=== PATIENT | female | born 1955 | race Caucasian/White ===

== ENCOUNTER → 2016-10-19 | Outpatient (CLI) | payer BC ==
[~2016-10-19] MED LIST: ACETAMINOPHEN PO; AMOXICILLIN875 MG PO; ASPIRIN PO; CLARITIN-D1 TAB 241 PO; COUMADIN PO; ECOTRIN325 MG PO; ELIQUIS5 MG PO; FLONASE 0.05% N16 GM; KEFLEX PO; KEFLEX500 MG PO; LOVENOX SUBQ; MEVACOR PO; NO MEDICATIONS; OFLOXACIN5 M1 AD; OXYCODON HCL-1 UDTA1 PO; PRILOSEC PO; VICODIN 5/500 T1 TAB PO; ZEGERID40 MG/PKT PO
--- NOTE | ~2016-10-19 | CT16 ---
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 Referring Physician: Laureen Willard A.P.R.N. Ordering Physician: Laureen Willadr A.P.R.N. Primary Care Physician: Laureen Willard A.P.R.N. MEDICAL IMAGING REPORT This report is preliminary unless electronic signature is present. EXAM Chest CTA, 10/19. INDICATION New onset right side chest pain. Patient had pulmonary embolism on recent prior CT and is currently on blood thinners. Pain rates 2/10 at this time. TECHNIQUE Axial images were obtained through the chest following IV contrast administration. 3-D reformats were obtained. This CT exam was performed with one or more of the following radiation dose reduction techniques: automatic exposure control, adjustment of mA and/or kV according to patient size, and iterative reconstruction. COMPARISON STUDIES Comparison is made with 09/24/2016. FINDINGS No pulmonary emboli are identified. Previously seen right lower lobe emboli have resolved. Pulmonary circulation is clear. There is no dissection. There is no pleural or pericardial effusion. There is no adenopathy. There is emphysema. Focal area of consolidation in the right lower lobe has a somewhat irregular appearance. This may reflect some atelectasis or pneumonia. This could also potentially reflect pulmonary infarct, although this is felt to be less likely. The lungs otherwise are clear. Upper abdomen shows granulomatous calcifications in the liver. IMPRESSION 1. No pulmonary embolism or aortic dissection is seen. Previously seen right lower lobe emboli have resolved. 2. Minimal dense consolidation in the posterior inferior right lower lobe is new from prior. There is probably some atelectasis. [facility] A Service of [facility] & [facility] RADIOLOGY TEXT RESULTS PATIENT: TOM CHOI LOCATION: [facility] : 53 UNIT #: [id number] AGE: [address]: Laureen Willard SEX: F ORDER DR: Pneumonia is considered less likely. Pulmonary infarct is also in the differential, but is considered somewhat less likely, as well, based on its appearance. 3. Emphysema. STAT * RESULT Dictated by... Sudarshan Morillo Jr., M.D. THIS IS AN ELECTRONICALLY VERIFIED REPORT Sudarshan Morillo Jr., M.D. at 10/19/2016 11:13 AM CHIKA/sheba TD: 10/19/2016 10:40 JOB #: [id number] MEDICAL IMAGING REPORT
== END | disposition home or self-care (01) ==
LOC: SCT 08:12
DX: I26.99 Other pulmonary embolism without acute cor pulmonale (principal); R07.9 Chest pain, unspecified; R06.02 Shortness of breath; J43.9 Emphysema, unspecified; J18.1 Lobar pneumonia, unspecified organism
CPT/HCPCS: 71275; Q9967

== ENCOUNTER → 2016-10-31 | Outpatient (CLI) | payer BC ==
--- NOTE | ~2016-10-31 | CR63 ---
[facility] A Service of [facility] & [facility] RADIOLOGY TEXT RESULTS PATIENT: TOM CHOI LOCATION: [facility] : 53 UNIT #: [id number] AGE: [address]: Laureen Willard LINEN ROOM ATTENDANT SEX: F ORDER DR: [id number] [address] [address] [id number] O MR#: [id number] Acc #: [id number] NAME: TOM CHOI : 1955 SEX: F STUDY DATE/TIME: 10/31/2016 UNIT: [facility] ROOM: STUDY DESCRIPTION: CR Chest 2 View Attending Physician: Laureen Willard A.P.R.N. Referring Physician: Laureen Willard A.P.R.N. Ordering Physician: Laureen Willard A.P.R.N. Primary Care Physician: Laureen Willard A.P.R.N. MEDICAL IMAGING REPORT This report is preliminary unless electronic signature is present. EXAM Chest 2 views 04/02/2017 10:21 hours HISTORY Patient had shortness of air and chest pain 1 month ago with abnormal density at the right lung base on prior exam. Followup right basilar atelectasis/nodule. COMPARISON Chest CT 10/19/2016 FINDINGS Upright PA and lateral views of the chest demonstrate normal heart size. There is a mildly tortuous aorta without change. The lungs demonstrate no acute pulmonary densities. Previous band-like density at the right posterior lung base is not seen on plain film. There is no effusion. IMPRESSION The lungs are now clear. No residual density is seen at the right lung base where abnormal density is present on CT 10/19/2016. Dictated by... Zainab Keenan M.D. THIS IS AN ELECTRONICALLY VERIFIED REPORT Zainab Keenan M.D. at 11/01/2016 9:29 AM SMM/michelle TD: 10/31/2016 14:53 JOB #: [id number] MEDICAL IMAGING REPORT
== END | disposition home or self-care (01) ==
LOC: SRAD 10:11
DX: Z09 Encounter for follow-up examination after completed treatment for conditions other than malignant neoplasm (principal)
CPT/HCPCS: 71020